=== PATIENT | male | born 2000 | race Caucasian/White ===

== ENCOUNTER 2019-09-13 15:09 | Emergency (ER) | payer BC ==
--- OUTSIDE RECORDS SUMMARY | 2019-09-13 15:15 | XMS REPORT | Continuity of Care Document ---
:2000 Author Organization [facility] Address [address] [address] [place] [address] Phone Care Team Providers Name Role Phone Adriana BERNARD, Malvin Unavailable Unavailable Allergies, Adverse Reactions, Alerts Substance Reaction Status amoxicillin Rash (mild) Active Medications Medication Instructions Dosage Effective Dates Status Comments (start - stop) Ventolin HFA 90 2-6 puffs up to - Active !! Check mcg/actuation every 4 hours as FamilyWize aerosol inhaler needed for relief Pricing: BIN #: of cough, wheeze [id number] Group #: or shortness of [id number] Card #: breath. Use with [id number] PCN:FW spacer whenever possible. Breo Ellipta 200 1 inhalation once - Active !! Check mcg-25 mcg/dose a day EVERY DAY no FamilyWize powder for matter how well Pricing: BIN #: inhalation your asthma is [id number] Group #: doing [id number] Card #: [id number] PCN:FW Bhavya-D 24 Hour 1 tablet once a - Active 180 mg-240 mg day as needed for tablet,extended allergy symptoms release Singulair 10 mg 1 tablet once a - No Longer !! Check tablet day, EVERY DAY, no Active FamilyWize matter how well Pricing: BIN #: your asthma is [id number] Group #: doing [id number] Card #: [id number] PCN:FW Ventolin HFA 90 2-6 puffs up to - No Longer !! Check mcg/actuation every 4 hours as Active FamilyWize aerosol inhaler needed for relief Pricing: BIN #: of cough, wheeze [id number] Group #: or shortness of [id number] Card #: breath. Use with [id number] PCN:FW spacer whenever possible. Problems Condition Effective Dates (start - Clinical Status Comments stop) Encntr for general adult medical - exam w/o abnormal findings Left varicocele Severe persistent asthma Allergy due to pollen Allergic rhinitis due to animal dander Mild persistent asthma with acute exacerbation Allergy due to pollen Allergic rhinitis due to animal dander Asthma, mild persistent Allergy due to pollen Allergic rhinitis due to animal dander Asthma, mild persistent Allergy due to pollen Allergic rhinitis due to animal dander Stiff back Allergic rhinitis, unspecified - Asthma, mild persistent Periumbilical pain Allergic rhinitis, unspecified - Asthma - Asthma - Allergic rhinitis, unspecified - Asthma, unspecified Allergy, unspecified, not elsewhere classified Asthma, unspecified Allergy, unspecified, not elsewhere classified Asthma Asymptomatic Arthralgia of multiple sites Recurrent Procedures Procedure Date OCULAR INSTRUMNT SCREEN DALI PURE TONE AUDIOMETRY AIR PREV VISIT EST AGE 18-39 PREV VISIT EST AGE 18-39 OXIMETRY- Single determination SPIROMETRY OFFICE/OUTPATIENT VISIT EST 33-40 Spirometry Test OFFICE/OUTPATIENT VISIT, EST Spirometry Test OFFICE/OUTPATIENT VISIT, EST Spirometry Test OFFICE/OUTPATIENT VISIT, EST OFFICE CONSULTATION Spirometry Test OFFICE/OUTPATIENT VISIT, EST OFFICE CONSULTATION Spirometry Test IM ADMIN 1ST/ONLY COMPONENT FLU VAC NO PRSV 4 AMANDA 3 YRS+ OFFICE/OUTPATIENT VISIT, EST Spirometry Test OFFICE/OUTPATIENT VISIT, EST Spirometry Test OFFICE/OUTPATIENT VISIT, EST BREATHING CAPACITY TEST OFFICE/OUTPATIENT VISIT, EST OFFICE/OUTPATIENT VISIT, EST MEASURE BLOOD OXYGEN LEVEL BREATHING CAPACITY TEST RESPIRATORY FLOW VOLUME LOOP OFFICE/OUTPATIENT VISIT, EST MEASURE BLOOD OXYGEN LEVEL BREATHING CAPACITY TEST RESPIRATORY FLOW VOLUME LOOP OFFICE/OUTPATIENT VISIT, EST MEASURE BLOOD OXYGEN LEVEL BREATHING CAPACITY TEST RESPIRATORY FLOW VOLUME LOOP OFFICE/OUTPATIENT VISIT, EST MEASURE BLOOD OXYGEN LEVEL BREATHING CAPACITY TEST RESPIRATORY FLOW VOLUME LOOP OFFICE/OUTPATIENT VISIT, EST MEASURE BLOOD OXYGEN LEVEL BREATHING CAPACITY TEST RESPIRATORY FLOW VOLUME LOOP OFFICE/OUTPATIENT VISIT, EST MEASURE BLOOD OXYGEN LEVEL OFFICE/OUTPATIENT VISIT, EST MEASURE BLOOD OXYGEN LEVEL BREATHING CAPACITY TEST RESPIRATORY FLOW VOLUME LOOP EVALUATE PT USE OF INHALER BREATHING CAPACITY TEST RESPIRATORY FLOW VOLUME LOOP OFFICE/OUTPATIENT VISIT, EST OFFICE/OUTPATIENT VISIT, EST MEASURE BLOOD OXYGEN LEVEL BREATHING CAPACITY TEST RESPIRATORY FLOW VOLUME LOOP OFFICE/OUTPATIENT VISIT, EST MEASURE BLOOD OXYGEN LEVEL BREATHING CAPACITY TEST RESPIRATORY FLOW VOLUME LOOP Fe OFFICE/OUTPATIENT VISIT, EST MEASURE BLOOD OXYGEN LEVEL BREATHING CAPACITY TEST RESPIRATORY FLOW VOLUME LOOP Influenza A H1N1,admin w cou Influenza A H1N1, vaccine OFFICE CONSULTATION MEASURE BLOOD OXYGEN LEVEL EVALUATION OF WHEEZING RESPIRATORY FLOW VOLUME LOOP EVALUATE PT USE OF INHALER Results Test Name Date and Time Measure Units Reference Range Abnormal Flag Status Comments No information Advance Directives Directive Yes / No Effective Date File Name No information Encounters Encounter Practice Location Reason(s) Diagnoses Date Provider Providers Description For Visit Copied on Encounter [place] [facility] Malvin. 19 [facility] Pul[facility] 0 [facility], [place], [facility] [address], [place], [place], [address], [place] [address], [place]. [place], tel:+44 [place], [address], 284363 [place] tel:[phone] PREV VISIT [facility] for [place] Referring EST AGE 18-39 [facility]. Provider: [facility] Liudmila adult 9 140 [facility], medical exam [facility], [address] w/o abnormal [address], [address] findingsLeft [facility] varicocele [place], [address], [place] [address], [place], [address], [facility], [address], tel:+42 [place], [address]. [place] [id number] tel:+ tel:[phone] OFFICE/OUTPAT [place] Severe Feb- [facility] Referring IENT VISIT Children[facility] Peds persistent Malvin. 19 Provider: EST 33-40 Health Pulmonology asthmaAllerg 9 [place] [facility], y due to [place], [facility], [address] pollenAllerg [address], [address] ic rhinitis [place], [place], [address], [facility] [address], animal [place]. [address], [place], dander tel:+44 [place], [address], 866956 [place], [address]. [place] tel: tel:[phone] OFFICE/OUTPAT [place] Mild Dec-2 [place] Referring IENT VISIT, Children[facility] Peds persistent 1-201 Malvin. 19 Provider: [facility] asthma with 8 [facility]a [facility], [facility], [address] exacerbation [address], [place] Allergy due [place], [address], [place], [address], [place] [address], pollenAllerg [place]. [place] Nur, [place]: [place], [address]. [place], [address], due to 022651 tel: [place] animal [id number] tel: dander [phone] OFFICE/OUTPAT [place] Asthma, mild Aug-1 Traeger Referring IENT VISIT, Children[facility] Peds persistentAl 0-201 Malvin. 19 Provider: [facility] Pulmonology lergy due to 8 Yan [facility]a [facility], [facility], [address] ic rhinitis [address], [place] due to [place] [place], [address], [place] [address], dander [place]. [place], [place]: [place], [address]. [place], [address], [id number] tel: [place] [phone] tel:[phone] OFFICE/OUTPAT [place] Asthma, mild Aug-0 Traeger Referring IENT VISIT, Children's Peds persistentAl 4-201 Malvin. 19 Provider: [facility] Pulmonology lergy due to 7 Yan [facility]a [facility], [facility], [address] rhinitis [address], [place] due to [place], [address], [place], [address], [address] [place] [address], dander [place]. Pediatrics [place], tel:+ , [place], [address], [id number] [place], [address]. tel:[phone] tel: [phone] OFFICE [place] Arthralgia Apr-2 Carlene Referring CONSULTATION Children[facility] Peds of multiple 0-201 Stefanie. Provider: [facility] Rheumatology [facility] 7 19 [facility], [facility], [address], [place], [address], [place], [address], [address] [place] [address], [place]. Pediatrics [place], tel:+45 , [facility], [address], [address]77[address] [place], [address]. tel:+ tel:[phone] OFFICE/OUTPAT [place] Allergic Sep- [place] Referring IENT VISIT, Children's Peds rhinitis, 7 Malvin. 19 Provider: EST Health Pulmonology unspecifiedA 7 [facility], [facility], [facility], [address] persistent 1400, [facility] [place], [address], [place], [address], [address] [place] [address], [place]. Pediatrics [place], tel:+44 , [facility], [address], 600348 [place], [address]. tel:+ tel:[phone] OFFICE [facility] [facility] At Periumbilica Jul- Tanisha Referring CONSULTATION [facility] l pain Marva. 503 Provider: [address] [facility], Road, [facility], [address], [place], [address], [place], [address], [address] [place] [address], [place]. Pediatrics [place], tel:+43 , [facility], [address], 790295 [place], [address]. tel:[phone] tel:[phone] OFFICE/OUTPAT [place] Allergic Apr- Traeger Referring IENT VISIT, Children's Peds rhinitis, Malvin. 19 Provider: EST Health Pulmonology unspecifiedA 6 [facility]a [facility], [facility], [facility], [address], [facility] [place], [address], [place], [address], [address] [place] [address], [place]. Pediatrics [place], tel:+ , [facility], [address], 688491 [facility], [address]. tel:+ tel:[phone] OFFICE/OUTPAT [facility] AsthmaAllerg Nov-0 Traeger Referring IENT VISIT, Children's Peds ic rhinitis, 2- Malvin. 19 Provider: EST Health Pulmonology unspecified 5 [facility]el [facility], [place], [place], [address], [place], [address], [place], [address], [address] [place] [address], [place]. Pediatrics [place], tel:+ , [facility], [address], 219508 [facility], [address]. tel:+ tel:[phone] OFFICE/OUTPAT [place] Asthma, Nov-0 Traeger IENT VISIT, Children's Peds unspecifiedA 6-201 Malvin. 19 EST Health Pulmonology llergy, 4 [facility], unspecified, Avenue, [place] [address], [place] elsewhere [place], [place], [address], [place] [address], [place]. [place], tel:+ [place], [address], 862078 [place] tel:+ [phone] OFFICE/OUTPAT [place] Peteindianola Asthma, Aug-2 [place]eger IENT VISIT, Children's Peds unspecifiedA 8-201 Malvin. 19 EST Health Pulmonology llergy, 4 [place] [facility], unspecified, [address], [place] [address], [place] elsewhere [place], [place], [address], [place] [address], [place], tel:+ [place], [address], 894245 [place] tel:[phone] [facility] Aug-2 [facility] 7-201 Malvin. 19 Health Pulmonology 4 aYn Physicians, [address], [place] [address], [place], [place], [address], [place] [address], [place]. [place], tel:+144 [place], [address], [address] [place] tel:[phone] OFFICE/OUTPAT [place] Trent-0 [place]eger IENT VISIT, Children's Peds 7-201 Malvin. 19 EST Health Pulmonology 3 [facility], [place], [place] [address], [place], [place], [address], [place] [address], [place]. [place], tel:+1-44 [place], [address], 290676 [place] tel:[phone] OFFICE/OUTPAT [place] Nov-3 [place] IENT VISIT, Children's Peds 0-201 Malvin. 19 EST Health Pulmonology 2 [facility], [place], [place] [address], [facility] [place], [place], [address], [place] [address], [place]. [place], tel:+144 [place], [address], 414[address] [place] tel:[phone] [facility] IENT VISIT, Children's Peds 5-201 Malvin. 19 EST Health Pulmonology 2 [facility] [facility], [place], [place] [address], [facility] [place], [facility], [address], [place] [address], [place]. [place], tel:+144 [place], [address], 313[address] [place] tel:[phone] [facility] Dec-2 [facility] IENT VISIT, Children's Peds 3-201 Malvin. 19 EST Health Pulmonology 1 [facility], [place], [place] [address], [facility] [place], [place], [address], [place] [address], [place]. [place], tel:+1-44 [place], [address], 449111 [place] tel:[phone] [facility] Aug-2 [facility] IENT VISIT, Children's Peds 2-201 Malvin. 19 EST Health Pulmonology 1 [facility], [place], [place] [address], [place], [place], [address], [place] [address], [place]. [place], tel:+144 [place], [address], 753728 [place] tel:[phone] OFFICE/OUTPAT [facility] Mar-0 [facility] IENT VISIT, Children's Peds 2-201 Malvin. 19 EST Health Pulmonology 1 [facility], [place], [place] [address], [address], [place], [address], [place] [address], [place]. [place], tel:+44 [place], [address], 918582 [place] tel:[phone] [facility] Nov-1 [facility] IENT VISIT, Children's Peds 7-201 Malvin. 19 EST Health Pulmonology 0 [facility], [place], [place] [address], [address], [place], [address], [place] [address], [place]. [place], tel:+144 [place], [address], 783001 [place] tel:[phone] OFFICE/OUTPAT [facility] Aug-1 [place] IENT VISIT, Children's Peds 3-201 Malvin. 19 EST Health Pulmonology 0 [facility], [place], [place] [address], [place], [place], [address], [place] [address], [place]. [place], tel:+144 [place], [address], 158453 [place] tel:[phone] [facility]PAT [facility] [place]-1 [facility] IENT VISIT, Children's Peds 6-201 Malvin. 19 EST Health Pulmonology 0 [facility], [place], [place] [address], [place], [place], [address], [place] [address], [place]. [place], tel:+144 [place], [address], 932304 [place] tel:[phone] OFFICE/OUTPAT [facility] Feb-0 [facility] IENT VISIT, Children's Peds 8-201 Malvin. 19 EST Health Pulmonology 0 [facility], [place], [facility] [address], [address], [place], [address], [place] [address], [place]. [place], tel:+[phone] [place], [address], 774745 [place] tel:[phone] OFFICE/OUTPAT [facility] Nov-0 [facility] IENT VISIT, Children's Peds 2-200 Malvin. 19 EST Health Pulmonology 9 [facility], [facility] [address], [facility] [place], [place], [address], [place] [address], [place]. [place], tel:[phone] [place], [address], 530257 [place] tel:[phone] [facility] Oct-2 [facility] 3-200 Malvin. 19 Health Pulmonology 9 [facility], [facility] [address], [facility] [place], [place], [address], [place] [address], [place]. [place], tel:+[phone] [place], [address], 677143 [place] tel:[phone] [facility] Sep-2 [place] CONSULTATION Children's Peds 2-200 Malvin. 19 Health Pulmonology 9 [facility], [facility] [address], [facility] [place], [facility], [address], [place] [address], [place]. [place], tel:[phone] [place], [address], 422603 [place] tel:[phone] Family History Family Member Diagnosis Age At Onset Brother Allergies, environmental Paternal grandfather Congestive heart failure No family history of Asthma Maternal grandmother Melanoma Mother Ulcerative colitis Maternal grandfather Hypertension Paternal grandfather Mother Allergies, environmental Maternal grandmother Diverticular disease Father Allergies, environmental Maternal grandmother Thyroid disorder Immunizations Vaccine Date Status Comments NON-VFC 0.5mL ([id number]) administered Source: New Immunization Record Payers Payer name Insurance type Covered constitution party ID Authorization(s) [facility] ALEENA GALLOWAYCARD [id number] MICHELLE GALLOWAYCARD [id number] Social History Type Description Quantity Date Captured Comments Sex Male Vital Signs Date / Height Weight BMI Pulse Blood Temperature Respiratory Body Head BMI Pulse Inhaled Time: Rate Pressure Rate Surface Circumference percentile Ox Ox Area No information Chief Complaint And Reason For Visit No information Reason For Referral Reason For Referral No information Plan Of Treatment Date Type Action Status Patient Education Gastroesophageal Reflux Disease (GERD) completed History Of Present Illness Encounter Date Complaint History Of Present Illness No information Functional Status Date Functional Assessment No information Medications Administered Medication Instructions Dosage Effective Dates (start - stop) Status Comments No information Instructions Date Instruction Additional Information Urology referral Related to Left varicocele Anticipatory Guidance Related to Encntr for general adult medical exam w/o abnormal findings Age appropriate anticipatory guidance discussed (15-21 years) Age appropriate diet discussed (15-21 years) Age appropriate safety discussed (15-21 years) Oral Health Discussed (15-21 years) Use antihistamine (Bhavya-D) as Related to Allergic rhinitis due to needed. animal dander Restart use of Bhavya-D and Flonase Related to Allergy due to pollen till symptoms subside.See an malt roaster. Asthma Medications (see exact dosages Related to Severe persistent asthma above): Medication changes this visit: Start medications for your allergies. Call me later this month if you're still using albuterol more than 1-2 times a week.A. CONTROLLER (Decreases chronic inflammation). Use DAILY, when sick OR well!Inhaled medications (Rinse mouth after use): Breo 200/25Oral medications: Singulair 10B. QUICK-RELIEVER (Relieves Constriction). Take every 4 hours NEEDED for relief of Cough, Wheeze, Shortness of Breath.You may repeat the quick reliever every 20 minutes up to 3 times in 1 hour.During illnesses make sure that this medication is started early and used often enough (don't wait too long, don't hesitate to use).Albuterol inhalerSee your doctor, call, or go to Emergency Room if: WHEN WELL: Night-time cough during sleep more than 2 nights per month Need for quick-reliever medication more than 2 times per weekWHEN SICK: Heavy or hard breathing Symptoms don't respond well enough to reliever medication Need for quick-reliever more often than every 4 hours Need for quick-reliever for more than 7-10 days straight OR WITH ANY OTHER QUESTIONS OR CONCERNS.Get influenza vaccine in fall.See me again when back in [place] Use antihistamine (Bhavya-D) as Related to Allergic rhinitis due to needed. animal dander Use antihistamine (Bhavya-D) as Related to Allergy due to pollen needed. Asthma Medications (see exact dosages Related to Mild persistent asthma above): Medication changes this visit: with acute exacerbation Start Prednisone x5 days. Lower Asmanex to once a day. Can increase dose of albuterol to 4-6 puffs if 2 puffs don't give adequate relief. Call if worse, not improving.A. CONTROLLER (Decreases chronic inflammation). Use DAILY, when sick OR well!Inhaled medications (Rinse mouth after use): Asmanex 220B. QUICK-RELIEVER (Relieves Constriction). Take every 4 hours NEEDED for relief of Cough, Wheeze, Shortness of Breath.You may repeat the quick reliever every 20 minutes up to 3 times in 1 hour.During illnesses make sure that this medication is started early and used often enough (don't wait too long, don't hesitate to use).Albuterol inhalerSee your doctor, call, or go to Emergency Room if: WHEN WELL: Night-time cough during sleep more than 2 nights per month Need for quick-reliever medication more than 2 times per weekWHEN SICK: Heavy or hard breathing Symptoms don't respond well enough to reliever medication Need for quick-reliever more often than every 4 hours Need for quick-reliever for more than 7-10 days straight OR WITH ANY OTHER QUESTIONS OR CONCERNS.See me again when back in [place] Use antihistamine (Bhavya-D) as Related to Allergic rhinitis due to needed. animal dander Asthma Medications (see exact dosages Related to Asthma, mild persistent above): Medication changes this visit: None. Remain on inhaled steroidA. CONTROLLER (Decreases chronic inflammation). Use DAILY, when sick OR well!Inhaled medications (Rinse mouth after use): Flovent Diskus 50 or Asmanex 220B. QUICK-RELIEVER (Relieves Constriction). Take every 4 hours NEEDED for relief of Cough, Wheeze, Shortness of Breath.You may repeat the quick reliever every 20 minutes up to 3 times in 1 hour.During illnesses make sure that this medication is started early and used often enough (don't wait too long, don't hesitate to use).Albuterol inhalerSee your doctor, call, or go to Emergency Room if: WHEN WELL: Night-time cough during sleep more than 2 nights per month Need for quick-reliever medication more than 2 times per weekWHEN SICK: Heavy or hard breathing Symptoms don't respond well enough to reliever medication Need for quick-reliever more often than every 4 hours Need for quick-reliever for more than 7-10 days straight OR WITH ANY OTHER QUESTIONS OR CONCERNS.Get influenza vaccine in [facility] again when back in [place] Restart nasal steroids (Qnasl) daily Related to Allergy due to pollen till end of your allergy season.Continue daily use of antihistamine (Bhavya-D) too. Call your ENT if ears not clearing. Asthma Medications (see exact dosages Related to Asthma, mild persistent above): Medication changes this visit: None.A. CONTROLLER (Decreases chronic inflammation). Use DAILY, when sick OR well!Inhaled medications (Rinse mouth after use): Flovent Diskus 50B. QUICK-RELIEVER (Relieves Constriction). Take every 4 hours NEEDED for relief of Cough, Wheeze, Shortness of Breath.You may repeat the quick reliever every 20 minutes up to 3 times in 1 hour.During illnesses make sure that this medication is started early and used often enough (don't wait too long, don't hesitate to use).Albuterol inhalerSee your doctor, call, or go to Emergency Room if: WHEN WELL: Night-time cough during sleep more than 2 nights per month Need for quick-reliever medication more than 2 times per weekWHEN SICK: Heavy or hard breathing Symptoms don't respond well enough to reliever medication Need for quick-reliever more often than every 4 hours Need for quick-reliever for more than 7-10 days straight OR WITH ANY OTHER QUESTIONS OR CONCERNS.Get influenza vaccine in fallSee me again when back [place] Use antihistamine (Bhavya-D) as Related to Allergic rhinitis due to needed. animal dander Continue nasal steroids (Flonase) Related to Allergy due to pollen daily till end of your allergy season.Start daily use of antihistamine (Bhavya-D) too. Call your ENT if ears not clearing. Encourage daily aerobic exercise and Related to Arthralgia of multiple good sleep hygiene to improve quality sites of sleep. Encourage stretching and ROM Related to Stiff back exercises. Concern for spondyloarthropathy, especially given maternal history of ulcerative colitis. Full activity as tolerated. No Related to Arthralgia of multiple activity restriction. sites Call if swelling, limp or new Related to Arthralgia of multiple complaints sites Asthma Medications (see exact dosages Related to Asthma, mild persistent above): Medication changes this visit: Change Flovent Diskus from once a day to twice a day. Call me in 2 weeks if your asthma is still not well controlled.A. CONTROLLER (Decreases chronic inflammation). Use DAILY, when sick OR well!Inhaled medications (Rinse mouth after use): Flovent Diskus 50B. QUICK-RELIEVER (Relieves Constriction). Take every 4 hours NEEDED for relief of Cough, Wheeze, Shortness of Breath.You may repeat the quick reliever every 20 minutes up to 3 times in 1 hour.During illnesses make sure that this medication is started early and used often enough (don't wait too long, don't hesitate to use).Albuterol inhalerSee your doctor, call, or go to Emergency Room if: WHEN WELL: Night-time cough during sleep more than 2 nights per month Need for quick-reliever medication more than 2 times per weekWHEN SICK: Heavy or hard breathing Symptoms don't respond well enough to reliever medication Need for quick-reliever more often than every 4 hours Need for quick-reliever for more than 7-10 days straight OR WITH ANY OTHER QUESTIONS OR CONCERNS.Return in 2-3 months Start nasal steroids (Flonase) today Related to Allergic rhinitis , and continue daily till end of your unspecified allergy season.Use antihistamine (Bhavya-D) as needed. Will Trial Prilosec 40mg po Related to Periumbilical pain qhsAnti-reflux diet discussedWill treat constipation - high fiber diet discussed.Patient needs 20 grams of fiber a dayFiber supplements OTC discussedAbdomen US : r/o gallstonesMother to call if sx persist or worsen. Will consider EGd if sx persist. discussed with the mother. will test for celiac disease if sx persist at the next visit. Asthma Medications (see exact dosages Related to Asthma above): Medication changes this visit: Change from Advair Diskus 100/50 to Flovent Diskus 50A. CONTROLLER (Decreases chronic inflammation). Use DAILY, when sick OR well!Inhaled medications (Rinse mouth after use): Flovent Diskus 50B. QUICK-RELIEVER (Relieves Constriction). Take every 4 hours NEEDED for relief of Cough, Wheeze, Shortness of Breath.You may repeat the quick reliever every 20 minutes up to 3 times in 1 hour.During illnesses make sure that this medication is started early and used often enough (don't wait too long, don't hesitate to use).Albuterol inhalerSee your doctor, call, or go to Emergency Room if: WHEN WELL: Night-time cough during sleep more than 2 nights per month Need for quick-reliever medication more than 2 times per weekWHEN SICK: Heavy or hard breathing Symptoms don't respond well enough to reliever medication Need for quick-reliever more often than every 4 hours Need for quick-reliever for more than 7-10 days straight OR WITH ANY OTHER QUESTIONS OR CONCERNS.Given influenza vaccine at today's visit.Return in 2-3 months Start nasal steroids 2-4 weeks prior Related to Allergic rhinitis , to onset of spring.Use antihistamine unspecified as needed. Asthma Medications (see exact dosages Related to Asthma above): Medication changes this visit: None.A. CONTROLLER (Decreases chronic inflammation). Use DAILY, when sick OR well!Inhaled medications (Rinse mouth after use): Advair Diskus 100/50B. QUICK-RELIEVER (Relieves Constriction). Take every 4 hours NEEDED for relief of Cough, Wheeze, Shortness of Breath.You may repeat the quick reliever every 20 minutes up to 3 times in 1 hour.During illnesses make sure that this medication is started early and used often enough (don't wait too long, don't hesitate to use).Albuterol inhalerSee your doctor, call, or go to Emergency Room if: WHEN WELL: Night-time cough during sleep more than 2 nights per month Need for quick-reliever medication more than 2 times per weekWHEN SICK: Heavy or hard breathing Symptoms don't respond well enough to reliever medication Need for quick-reliever more often than every 4 hours Need for quick-reliever for more than 7-10 days straight OR WITH ANY OTHER QUESTIONS OR CONCERNS.Return in 4-6 months Start nasal steroids 2-4 weeks prior Related to Allergic rhinitis , to onset of spring.Use antihistamine unspecified as needed. Discussed starting a nasal steroid Related to Allergy, unspecified, prior to next spring and trying not elsewhere classified Zyrtec-D rather than Bhavya-D. Asthma Medications (see exact dosages Related to Asthma, unspecified above): Medication changes this visit: None.A. CONTROLLER (Decreases chronic inflammation). Use DAILY, when sick OR well!Inhaled medications (Rinse mouth after use): Advair DiskusB. QUICK-RELIEVER (Relieves Constriction). Take every 4 hours NEEDED for relief of Cough, Wheeze, Shortness of Breath.During illnesses make sure that this medication is used early and often enough (don't wait too long, don't hesitate to use).Albuterol inhalerSee your doctor, call, or go to Emergency Room if: WHEN WELL: Night-time cough during sleep more than 2 nights per month Need for quick-reliever medication more than 2 times per weekWHEN SICK: Heavy or hard breathing Symptoms don't respond well enough to reliever medication Need for quick-reliever more often than every 4 hours Need for quick-reliever for more than 7-10 days straight OR WITH ANY OTHER QUESTIONS OR CONCERNS. Take Bhavya-D (or another long acting Related to Allergy, unspecified, antihistamine) every day (rather than not elsewhere classified as needed) during your allergy seasons. Asthma Medications: (see exact Related to Asthma, unspecified dosages above): A. CONTROLLER (Decreases chronic inflammation). Use DAILY, when sick OR well!Inhaled medications: (Rinse mouth after use)Stop Asmanex TwisthalerStart Advair DiskusB. QUICK-RELIEVER (Relieves Constriction). Take every 4 hours NEEDED for relief of Cough, Wheeze, Shortness of Breath.During illnesses make sure that this medication is used early and often enough (don't wait too long, don't hesitate to use).Albuterol inhalerSee your doctor, call, or go to Emergency Room if: WHEN WELL: Night-time cough during sleep more than 2 nights per month Need for quick-reliever medication more than 2 times per weekWHEN SICK: Heavy or hard breathing Symptoms don't respond well enough to reliever medication Need for quick-reliever more often than every 4 hours Need for quick-reliever for more than 7-10 days straight OR WITH ANY OTHER QUESTIONS OR CONCERNS.Influenza vaccine in fall. Assessments Type Assessment Date No information Goals Health Concern Goal Type Priority Status Date No information Medical Equipment Description Device Point Lay Device Identifier Effective Dates (start - stop ) Status No information Mental Status Date Cognitive Assessment No information Health Concerns Observation Date No information Concern Status Date No information
[2019-09-13 15:45] LABS: Influenza A Molecular Negative (Negative); Influenza B Molecular Negative (Negative)
[2019-09-13 15:54] VITALS: BP 134/79
--- NOTE | 2019-09-13 16:07 | UC ---
Throat Pain/Nasal Dinh HPI - HPI Summary HPI Summary: 19-year-old male comes in with chief complaint of rhinorrhea is discharge cough for about one week.'s been using his albuterol is not really helping with the cough. Rhinorrhea is yellow and green. Throat feels dry. - History of Current Complaint Chief Complaint: UCGeneralIllness Stated Complaint: COUGH Time Seen by Provider: 09/13/19 15:58 Pain Intensity: 0 - Allergies/Home Medications Allergies/Adverse Reactions: Allergies Allergy/AdvReac Type Severity Reaction Status Date / Time amoxicillin Allergy Unknown as child, Verified 09/13/19 15:42 possible hives Home Medications: Home Medications Albuterol HFA INHALER* [Ventolin HFA Inhaler*] 1 puff INH Q4H PRN 09/13/19 [ History Confirmed 09/13/19] Cephalexin CAP* [Keflex CAP*] 500 mg PO TID #30 cap 09/13/19 [Rx] Fluticasone/Vilanterol MDI(NF) [Breo Ellipta MDI (NF)] 1 puff INH DAILY [History Confirmed 09/13/19] PMH/Surg Hx/FS Hx/Imm Hx Previously Healthy: Yes Respiratory History: Asthma - Surgical History Surgical History: Yes Surgery Procedure, Year, and Place: 2017 discectomy - Family History Known Family History: Positive: Non-Contributory - Social History Alcohol Use: Weekly Substance Use Type: None Substance Use Comment - Amount & Last Used: vape occasional Smoking Status (MU): Never Smoked Tobacco Review of Systems All Other Systems Reviewed And Are Negative: Yes Constitutional: Positive: Other - SEE HPI Skin: Positive: Negative Eyes: Positive: Negative ENT: Positive: Sore Throat, Nasal Discharge, Sinus Congestion Respiratory: Positive: Cough Cardiovascular: Positive: Negative Gastrointestinal: Positive: Negative Motor: Positive: Negative Neurovascular: Positive: Negative Musculoskeletal: Positive: Negative Neurological/Mental Status: Positive: Negative Psychological: Positive: Negative Is Patient Immunocompromised?: No Physical Exam Triage Information Reviewed: Yes Appearance: No Pain Distress, Well-Nourished, Ill-Appearing - MILD Vital Signs: Initial Vital Signs Temp 99 F 09/13/19 15:34 Pulse 88 09/13/19 15:34 Resp 16 09/13/19 15:34 BP 146/87 09/13/19 15:34 Pulse Ox 99 09/13/19 15:34 Vital Signs Reviewed: Yes Eye Exam: Normal Eyes: Positive: Conjunctiva Clear ENT: Positive: Pharyngeal erythema, Nasal congestion, TMs normal Neck: Positive: Supple Respiratory: Positive: Lungs clear, Normal breath sounds, No respiratory distress Cardiovascular: Positive: RRR Musculoskeletal: Positive: Strength Intact, ROM Intact Neurological: Positive: Alert, Muscle Tone Normal Psychological: Positive: Age Appropriate Behavior Skin Exam: Normal Throat Pain/Nasal Course/Dx - Differential Dx/Diagnosis Provider Diagnosis: Strep pharyngitis Discharge ED - Sign-Out/Discharge Documenting (check all that apply): Patient Departure All imaging exams completed and their final reports reviewed: No Studies - Discharge Plan Condition: Stable Disposition: HOME Prescriptions: Cephalexin CAP* [Keflex CAP*] 500 mg PO TID #30 cap Patient Education Materials: Strep Throat (ED) Referrals: [facility] [Provider Group] Additional Instructions: FOLLOW UP WITH YOUR DOCTOR IF NOT COMPLETELY IMPROVED. GET REEVALUATED SOONER IF NOT IMPROVED OR WORSE OR ANY QUESTIONS OR CONCERNS. - Billing Disposition and Condition Condition: STABLE Disposition: Home
== END 2019-09-13 16:10 | disposition home or self-care (01) ==
LOC: UCEAST 15:09
DX: J02.0 Streptococcal pharyngitis (principal); J45.909 Unspecified asthma, uncomplicated; R09.81 Nasal congestion; R09.89 Other specified symptoms and signs involving the circulatory and respiratory systems; R05 Cough; Z88.1 Allergy status to other antibiotic agents
CPT/HCPCS: 87651; 99212; G0463